=== PATIENT | male | born 1980 | race Caucasian/White ===

== ENCOUNTER 2019-02-20 21:24 | Emergency (ER) | payer SELFPAY ==
[~2019-02-20] VITALS: Ht 165.1 cm; Wt 95.3 kg
[2019-02-20 21:30] VITALS: BP 145/87
--- NOTE | 2019-02-20 21:38 | NUR ---
38 Y/O M PRESENTED TO ED WITH C/O L CHEST PAIN X9 HOURS. 6/10 PAIN, BURNING AND INTERMINTENT. PAIN RADIATES TO L SHOULDER. C/O HEADACHE AND R EYE PAIN. REDNESS NOTED TO R EYE, NO DISCHARGE. DENIES VISION CHANGES. SKIN WARM TO TOUCH. ERMD NOTIFIED.WILL CONTINUE TO MONITOR.
[2019-02-20 22:26] VITALS: BP 149/96
[2019-02-20 23:11] VITALS: BP 132/81
--- NOTE | 2019-02-20 23:13 | NUR ---
DR. FABIAN EVALUATING PT AT BEDSIDE.
[2019-02-20] MEDS ORDERED: KETOROLAC 60 MG/2 ML VIAL IM ONE (23:30)
== END 2019-02-21 00:09 | disposition home or self-care (01) ==
LOC: MED 21:24
DX: R07.89 Other chest pain (principal); H10.9 Unspecified conjunctivitis
CPT/HCPCS: 93005; 96372; 99283; J1885